=== PATIENT | male | born 1960 | race Caucasian/White ===

== ENCOUNTER 2019-05-30 00:13 | Inpatient (IN) | payer OTHER ==
[2019-05-30 01:22] VITALS: BMI 39.9
--- NOTE | 2019-05-30 03:06 | PDOC ---
History of Present Illness - General Chief Complaint: Nausea/Vomiting Stated Complaint: DIZZINESS,VOMITING Time Seen by Provider: 05/30/19 01:35 History Source: Patient, Family Exam Limitations: Other (development delay ) - History of Present Illness Initial Comments: 06/01/19 07:23 HPI: 58M PMH epilepsy (on keppra, lamictal, and started on valproate last week), chronic headaches, and HTN HLD presenting w/ 1 week of imbalance that has worsened in the past 2-3 days. Additionally c/o diplopia for 2-3 days, not currently symptomatic. Had a fall today which the patient attributes to the imbalance w/o head strike or LOC. Denies change in headache character/severity, numbness, tinging, weakness. Denies cp/sob, nausea, abd pain, diarrhea, bloody stool. Pt also had a fall a few weeks ago w/ fall on the right chest; has reproducible right chest wall pain. Neurologist is Dr. Nur. Past History - Past Medical History Allergies/Adverse Reactions: Allergies Allergy/AdvReac Type Severity Reaction Status Date / Time amoxicillin [From Augmentin] Allergy Verified 05/30/19 14:37 clavulanic acid Allergy Verified 05/30/19 14:37 [From Augmentin] Home Medications: Ambulatory Orders Carbamazepine Xr [Tegretol XR -] 300 mg PO BID 07/16/12 Lamotrigine [LaMICtal -] 400 mg PO BID 07/16/12 levETIRAcetam [Keppra -] 1,500 mg PO BID 07/16/12 Docusate Sodium [Colace -] 100 mg PO BID PRN #0 capsule 05/07/15 Oxycodone HCl/Acetaminophen [Percocet 5-325 mg Tablet] 1 tab PO Q6H PRN #20 tablet 05/07/15 Anemia: No Asthma: No Cancer: No Cardiac Disorders: No CVA: No COPD: No CHF: No Dementia: No Diabetes: No GI Disorders: No Disorders: No HTN: Yes Hypercholesterolemia: Yes Liver Disease: No Seizures: Yes Thyroid Disease: No - Surgical History Abdominal Surgery: No Appendectomy: No Cardiac Surgery: No Cholecystectomy: No Lung Surgery: No Neurologic Surgery: No Orthopedic Surgery: No - Psycho Social/Smoking Cessation Hx Smoking History: Never smoked Have you smoked in the past 12 months: No Hx Alcohol Use: No Drug/Substance Use Hx: No Substance Use Type: None Hx Substance Use Treatment: No Review of Systems - Review of Systems Able to Perform ROS?: Yes Comments:: 06/01/19 07:23 ROS: CONSTITUTIONAL: Denies F / C HEENT: Endorses imbalance, prior recent diplopia, chronic headaches. Denies changes to hearing. RESP: Denies SOB CARD: Endorses right rib pain. Denies chest pain GI: Endorses vomiting today x3 w/o N. Denies N / D, abdominal pain, bloody stool , inability to tolerate PO : Denies dysuria, frequency SKIN: Denies rashes NEURO: Denies numbness, tingling, weakness Is the patient limited Spanish proficient: No *Physical Exam - Vital Signs Last Vital Signs Temp Pulse Resp BP Pulse Ox 98.1 F 67 17 151/104 H 98 05/30/19 00:13 05/30/19 00:13 05/30/19 00:13 05/30/19 00:13 05/30/19 00:13 - Physical Exam Comments: 06/01/19 07:23 PE: GEN: NAD, AAOx3 HEENT: NC/AT. CN II-XII intact. EOMI, PERRLA but patient did not have smooth pursuit on tracking to the left, no nystagmus noted. No facial asymmetry. Moist mucous membranes. Supple neck w/ FROM w/o midline TTP. BACK: no deformities or stepoffs. No midline TTP. NEURO: 5/5 UE LE strength B/L. No finger to nose or heel to muñoz ataxia. Unsteady gait on ambulation. SYmmetric sensation. CV: S1/S2, RRR, no m/r/g LUNG: CTAB, no wheezes, crackles, rales, rhonchi. GI: soft, ndnt, +BS, no guarding, no rebound. No masses. Neg CVAT b/l. EXTREMITIES: No obvious deformities of all extremities. SKIN: warm, dry, normal turgor PSYCH: flat affect, parsity of words in speech. ED Treatment Course - LABORATORY CBC & Chemistry Diagram: 05/31/19 06:35 05/31/19 06:35 - RADIOLOGY Radiology Studies Ordered: Category Date Time Status HEAD CT WITHOUT CONTRAST [CT] Stat CT Scan 05/30/19 02:20 Ordered CHEST PA & LAT [RAD] Stat Radiology 05/30/19 02:43 Ordered Medical Decision Making - Medical Decision Making 05/30/19 02:59 MDM: 58M h/o epilepsy start recently on valproate c/o 1 week of worsening imbalance. DDx - concern for posterior CVA, ICH, drug adverse affect - CBC, CMP, Mg, drug levels - EKG, CXR - CT head 05/30/19 04:28 CT HEAD IOC IMPRESSION: No acute brain parenchymal abnormality. No hemorrhage, mass or acute territorial infarct. Age-related involutional changes. No skull fracture. Clear visualized paranasal sinuses. Visualized mastoid air cells clear F/U labs CTA Brain / Neck 05/30/19 07:00 Signed out to Day Team Discharge - Discharge Information Problems reviewed: Yes Clinical Impression/Diagnosis: Headache Qualifiers: Headache type: unspecified Headache chronicity pattern: unspecified pattern Intractability: not intractable Qualified Code(s): R51 - Headache Condition: Fair - Follow up/Referral - Patient Discharge Instructions - Post Discharge Activity
[2019-05-30 04:23] LABS: BASO % 0.1 % (0-2.0); HEMATOCRIT 46.3 % (35.4-49); HEMOGLOBIN 16.2 GM/dL (11.7-16.9); MCH 31.7 pg (25.7-33.7); MCHC 34.9 g/dl (32.0-35.9); MEAN CELL VOLUME 90.9 fl (80-96); MEAN PLT VOLUME 8.7 fl (7.5-11.1); MONO % 4.8 % (3.8-10.2); NEUT % 80.1 % (42.8-82.8); PLATELET COUNT 218 K/MM3 (134-434); RDW 13.8 % (11.9-15.9); WHITE BLOOD COUNT 10.2 K/mm3 (4.0-10.0)
[2019-05-30 04:41] LABS: ALBUMIN 4.2 g/dl (3.4-5.0); BILIRUBIN,TOTAL 0.5 mg/dL (0.2-1); BLOOD UREA NITROGEN 11.5 mg/dL (7-18); CALCIUM 8.8 mg/dL (8.5-10.1); CREATININE 0.9 mg/dL (0.55-1.3); MAGNESIUM 2.3 mg/dL (1.8-2.4); POTASSIUM 4.6 mmol/L (3.5-5.1); TOT PROT 6.7 g/dl (6.4-8.2)
--- NOTE | 2019-05-30 07:07 | PDOC ---
*Physical Exam - Vital Signs Last Vital Signs Temp Pulse Resp BP Pulse Ox 98.1 F 88 18 160/90 95 05/30/19 00:13 05/30/19 05:52 05/30/19 05:52 05/30/19 05:52 05/30/19 05:52 ED Treatment Course - LABORATORY CBC & Chemistry Diagram: 05/30/19 03:15 05/30/19 03:15 - ADDITIONAL ORDERS Additional order review: Laboratory Results 05/30/19 05/30/19 03:15 03:15 Sodium 140 Potassium 4.6 Chloride 105 Carbon Dioxide 28 Anion Gap 7 L BUN 11.5 Creatinine 0.9 Est GFR (CKD-EPI)AfAm 107.22 Est GFR (CKD-EPI)NonAf 92.51 Random Glucose 100 Calcium 8.8 Magnesium 2.3 Total Bilirubin 0.5 AST 25 ALT 39 Alkaline Phosphatase 158 H Creatine Kinase 132 Troponin I < 0.02 Total Protein 6.7 Albumin 4.2 05/30/19 03:15 RBC 5.10 MCV 90.9 MCHC 34.9 RDW 13.8 MPV 8.7 Neutrophils % 80.1 D Lymphocytes % 15.0 D Monocytes % 4.8 Eosinophils % 0.0 D Basophils % 0.1 Medical Decision Making - Medical Decision Making 05/30/19 07:04 Pt received on sign out from Dr. Mendoza. 58M hx of epilepsy, chronic STACY, mild developmental delay, HTN, HLD, on 3 AED ( keppra, lamotrigine, valproate started this week by Dr. uNr). Inbalance worsening, diplopia, fell today from imbalance, vomited x3. Unsteady gait. Non- smooth pursuit to left. Hemorrhage vs posterior stroke vs medication side effect vs occlusion of vertebral artery. CT shows no acute hemorrhage. -EKG -CTA -neuro consult 05/30/19 07:17 EKG shows NSR, 83 bpm, no ST elevation/depression, no axis deviation, QTc 423. 05/30/19 07:37 CTA head and neck negative. -admit for further work up. Discharge - Discharge Information Problems reviewed: Yes Clinical Impression/Diagnosis: Headache Qualifiers: Headache type: unspecified Condition: Fair - Admission Yes - Follow up/Referral - Patient Discharge Instructions - Post Discharge Activity
--- NOTE | 2019-05-30 07:39 | PDOC ---
Attending Attestation - Resident Resident Name: Eddie Mendoza - ED Attending Attestation I have performed the following: I have examined & evaluated the patient, The case was reviewed & discussed with the resident, I agree w/resident's findings & plan, Exceptions are as noted - HPI HPI: 05/30/19 07:35 58M pmh HLD, HTN, epilepsy, recent addition of valproic acid, chronic STACY here with 1 week of typical STACY but now a/w imbalance, dizziness, episodic diplopia. - Physicial Exam PE: 05/30/19 07:36 Agree with exam as documented by resident - Medical Decision Making 05/30/19 07:36 Headache but with some concerning features, eval for cva, central lesion f/u labs, ct- head, cta head/neck Will need admission for complete evaluation
[2019-05-30 10:30] LABS: INR 1.08 (0.83-1.09); PROTHROMBIN TIME (PATIENT) 12.8 SEC (9.7-13.0)
[2019-05-30 11:52] LABS: URINE APPEARANCE Clear; URINE BILIRUBIN Negative (NEGATIVE); URINE COLOR Yellow; URINE GLUCOSE (UA) Negative (NEGATIVE); URINE KETONE Negative (NEGATIVE); URINE LEUK ESTERASE Negative (NEGATIVE); URINE NITRITE Negative (NEGATIVE); URINE PROTEIN Negative (NEGATIVE); URINE UROBILINOGEN 0.2 mg/dL (0.2-1.0)
[2019-05-30] MEDS ORDERED: DOCUSATE SODIUM 100 MG CAPSULE (FP) PO PRN (13:36)
--- NOTE | 2019-05-30 14:23 | EKG ---
Test Reason : Blood Pressure : / mmHG Vent. Rate : 083 BPM Atrial Rate : 083 BPM P-R Int : 160 ms QRS Dur : 090 ms QT Int : 360 ms P-R-T Axes : 036 -19 062 degrees QTc Int : 423 ms NORMAL SINUS RHYTHM MINIMAL VOLTAGE CRITERIA FOR LVH, MAY BE NORMAL VARIANT WHEN COMPARED WITH ECG OF 30-APR-2015 12:46, NO SIGNIFICANT CHANGE WAS FOUND Confirmed by QUIN BALL MD ([id number]) on 05/30/2019 2:22:44 PM Referred By: Confirmed By:QUIN BALL MD
--- NOTE | 2019-05-30 14:33 | HP ---
Admitting History and Physical - Admission Chief Complaint: 58 y.o M was BI by his sister to the ER due to STACY, confusion, imbalance in his gait. Recently his anti-seizure medications were changed by Dr Nur-Depakote 250 mg BID added . 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 No: Alzheimer's, CVA, Migraine, TIA, Vertigo Cardiovascular: Yes: Hyperlipdemia. No: Deep Vein Thrombosis - Smoking History Smoking history: Never smoked Have you smoked in the past 12 months: No - Alcohol/Substance Use Hx Alcohol Use: No - Social History History of Recent Travel: No Home Medications - Allergies Allergies/Adverse Reactions: Allergies Allergy/AdvReac Type Severity Reaction Status Date / Time amoxicillin [From Augmentin] Allergy Verified 05/30/19 14:37 clavulanic acid Allergy Verified 05/30/19 14:37 [From Augmentin] - Home Medications Home Medications: Ambulatory Orders Carbamazepine Xr [Tegretol XR -] 300 mg PO BID 07/16/12 Lamotrigine [LaMICtal -] 400 mg PO BID 07/16/12 levETIRAcetam [Keppra -] 1,500 mg PO BID 07/16/12 Docusate Sodium [Colace -] 100 mg PO BID PRN #0 capsule 05/07/15 Oxycodone HCl/Acetaminophen [Percocet 5-325 mg Tablet] 1 tab PO Q6H PRN #20 tablet 05/07/15 Family Medical History Family Hx Cancer: Father Family Hx Cardiac Disorders: Sister Family Hx Congestive Heart Failure: Sister Family Hx Coronary Artery Disease: Father Family Hx Respiratory Disorders: Sister Family Hx Gastrointestinal Disorder: Father Review of Systems - Review of Systems Constitutional: denies: Chills, Diaphoresis, Fever Eyes: denies: Blind Spots, Blurred Vision HENT: denies: Difficult Swallowing, Ear Discharge, Hearing Loss, Mouth Swelling Neck: denies: Decreased ROM, Lumps, Pain on Movement Cardiovascular: denies: Chest Pain, Edema Respiratory: denies: Cough, Exercise Intolerance, Hemoptysis Gastrointestinal: reports: Vomiting (Occasionally) Genitourinary: denies: Burning Breasts: reports: No Symptoms Reported Musculoskeletal: denies: Back Pain, Crepitus, Decreased ROM Integumentary: reports: No Symptoms Neurological: reports: Headache, Incoordination, Seizure, Unsteady Gait Endocrine: reports: No Symptoms Hematology/Lymphatic: reports: No Symptoms Psychiatric: reports: No Symptoms Physical Examination Vital Signs: Vital Signs Temperature 98.1 F 05/30/19 00:13 Pulse Rate 88 05/30/19 05:52 Respiratory Rate 18 05/30/19 05:52 Blood Pressure 160/90 05/30/19 05:52 O2 Sat by Pulse Oximetry (%) 95 05/30/19 05:52 Constitutional: Yes: Calm Eyes: Yes: Conjunctiva Clear, EOM Intact HENT: Yes: Atraumatic, Normocephalic Neck: Yes: Supple, Trachea Midline Cardiovascular: Yes: Regular Rate and Rhythm, S1, S2. No: Bradycardia, Tachycardia Respiratory: Yes: Regular, CTA Bilaterally. No: Accessory Muscle Use, Bradypnea Gastrointestinal: Yes: Normal Bowel Sounds, Soft, Abdomen, Obese ...Rectal Exam: Yes: Deferred Renal/: No: Anuria, Bladder Distention Breast(s): Yes: WNL Musculoskeletal: Yes: Other (Right low ribs tender with ecchymotic areas) Extremities: No: Amputation, Calf Tenderness, Cold, Cyanosis Edema: No Integumentary: Yes: Bruising Neurological: Yes: Alert, Oriented, Unsteady Gait. No: Aphasia, Asterixis, Dysarthria, Seizure, Unresponsive, Weakness ...Motor Strength: WNL Psychiatric: Yes: Alert, Oriented. No: Agitated, Suicidal Ideation Labs: CBC, BMP 05/30/19 03:15 05/30/19 03:15 Laboratory Results - last 24 hr 05/30/19 05/30/19 05/30/19 03:15 03:15 03:15 WBC 10.2 H RBC 5.10 Hgb 16.2 Hct 46.3 MCV 90.9 MCH 31.7 MCHC 34.9 RDW 13.8 Plt Count 218 MPV 8.7 Absolute Neuts (auto) 8.1 H Neutrophils % 80.1 D Lymphocytes % 15.0 D Monocytes % 4.8 Eosinophils % 0.0 D Basophils % 0.1 Nucleated RBC % 0 PT with INR INR Sodium 140 Potassium 4.6 Chloride 105 Carbon Dioxide 28 Anion Gap 7 L BUN 11.5 Creatinine 0.9 Est GFR (CKD-EPI)AfAm 107.22 Est GFR (CKD-EPI)NonAf 92.51 Random Glucose 100 Calcium 8.8 Magnesium 2.3 Total Bilirubin 0.5 AST 25 ALT 39 Alkaline Phosphatase 158 H Creatine Kinase 132 Troponin I < 0.02 Total Protein 6.7 Albumin 4.2 Urine Color Urine Appearance Urine pH Ur Specific [place] Urine Protein Urine Glucose (UA) Urine Ketones Urine Blood Urine Nitrite Urine Bilirubin Urine Urobilinogen Ur Leukocyte Esterase Valproic Acid Blood Type Antibody Screen 05/30/19 05/30/19 05/30/19 10:00 10:00 10:00 WBC RBC Hgb Hct MCV MCH MCHC RDW Plt Count MPV Absolute Neuts (auto) Neutrophils % Lymphocytes % Monocytes % Eosinophils % Basophils % Nucleated RBC % PT with INR 12.80 INR 1.08 Sodium Potassium Chloride Carbon Dioxide Anion Gap BUN Creatinine Est GFR (CKD-EPI)AfAm Est GFR (CKD-EPI)NonAf Random Glucose Calcium Magnesium Total Bilirubin AST ALT Alkaline Phosphatase Creatine Kinase Troponin I Total Protein Albumin Urine Color Urine Appearance Urine pH Ur Specific [place] Urine Protein Urine Glucose (UA) Urine Ketones Urine Blood Urine Nitrite Urine Bilirubin Urine Urobilinogen Ur Leukocyte Esterase Valproic Acid 31.9 L Blood Type B POSITIVE Antibody Screen Negative 05/30/19 11:06 WBC RBC Hgb Hct MCV MCH MCHC RDW Plt Count MPV Absolute Neuts (auto) Neutrophils % Lymphocytes % Monocytes % Eosinophils % Basophils % Nucleated RBC % PT with INR INR Sodium Potassium Chloride Carbon Dioxide Anion Gap BUN Creatinine Est GFR (CKD-EPI)AfAm Est GFR (CKD-EPI)NonAf Random Glucose Calcium Magnesium Total Bilirubin AST ALT Alkaline Phosphatase Creatine Kinase Troponin I Total Protein Albumin Urine Color Yellow Urine Appearance Clear Urine pH 8.0 D Ur Specific [place] 1.010 Urine Protein Negative Urine Glucose (UA) Negative Urine Ketones Negative Urine Blood Negative Urine Nitrite Negative Urine Bilirubin Negative Urine Urobilinogen 0.2 Ur Leukocyte Esterase Negative Valproic Acid Blood Type Antibody Screen Imaging - Results Cat Scan: Report Reviewed Problem List - Problems (1) Gait abnormality Assessment/Plan: Recently changed anti-seizure meds. As discussed with Dr Nur will hold Lamotrigine today and restart 200 mg BID tomorrow. Restart Depakote 250 mg BID tomorrow Will check levels Keppra, lamotrigine, depakote Consult neurology-f/u. Problems reviewed: Yes Code(s): R26.9 - UNSPECIFIED ABNORMALITIES OF GAIT AND MOBILITY (2) Seizure disorder Assessment/Plan: Continue current meds as above When patient's gait improves will d/c home Problems reviewed: Yes Code(s): G40.909 - EPILEPSY, UNSP, NOT INTRACTABLE, WITHOUT STATUS EPILEPTICUS (3) Vomiting alone Assessment/Plan: The patient has mild elevation of Alk phos, will check liver US Code(s): R11.11 - VOMITING WITHOUT NAUSEA Qualifiers: Vomiting type: unspecified
--- NOTE | 2019-05-30 20:43 | CONSULT ---
Consult - text type - Consultation Consultation Note: NEUROLOGY CONSULT GREATLY APPRECIATED: Events reviewed and discussed ED and Dr. Schreiber. Pt examined with sister present. 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 Tegretol toxicity in the past with dizziness and unsteadiness. Fairly well controlled for about 5 years on lamotrigine 400 mg q12 and leveteracitam 1500 mg q12, until recent flurry of increased seizures. On 05/20/19, Depakote ER added at 250 mg and increased to 500 mg HS last week. At that time, lamotrigine level= 41 mcg% and leveteracitam level= 65 mcg% without signs of toxicity. However, over the last two weeks, the past developed dizziness and increasing unsteadiness leading to a fall one day [employer]. No seizures noted by sister. CT of head (reviewed): Unremarkable. No evidence of infection or electrolyte disturbance. Current VPA level= 31.6mcg% Lamotrigine held today with marked improvement in symptoms. PAULINA: No evidence of external head trauma. Cor reg. No bruit. NEURO: Mild static encephalopathy. Speech fluent without dysarthria. CNII-CNXII: Normal without nystagmus. Motor: Fine tremor on sustension and grasp. Normal strength, reflexes and ZAK's. Coordination: No FTN dystaxia. Sensory: Romberg - Gait: Normal base (sister notes improvement) but difficulty tandem. Impression: Mild B/L cerebral dysfunction Complex-Partial Seizures (CPS) Lamotrigine toxicity due to enzyme blockage by valproic acid Suggest: Hold lamotrigine tonight, then resume at 200 mg q12H Continue leveteracitam 1500 mg Q12 and Depakote ER 250 mg q12H. Neuro f/u as outpatient Thank you very much, Eddie Nur MD
[2019-05-30] MEDS: levETIRAcetam 500 MG TABLET (FP) PO SCH (21:16)
[2019-05-30] MEDS: ATORVASTATIN CA 40 MG TABLET (FP) PO SCH (21:16)
[2019-05-31 07:40] LABS: BASO % 0.3 % (0-2.0); EOS % 0.3 % (0-4.5); HEMATOCRIT 47.9 % (35.4-49); HEMOGLOBIN 16.1 GM/dL (11.7-16.9); LYMPH % 27.1 % (8-40); MCH 30.3 pg (25.7-33.7); MCHC 33.5 g/dl (32.0-35.9); MEAN CELL VOLUME 90.3 fl (80-96); MEAN PLT VOLUME 8.3 fl (7.5-11.1); MONO % 9.1 % (3.8-10.2); NEUT % 63.2 % (42.8-82.8); PLATELET COUNT 200 K/MM3 (134-434); RBC 5.31 M/mm3 (4.00-5.60); RDW 13.7 % (11.9-15.9); WHITE BLOOD COUNT 6.8 K/mm3 (4.0-10.0)
[2019-05-31 08:06] LABS: ALBUMIN 3.8 g/dl (3.4-5.0); BILIRUBIN,TOTAL 0.9 mg/dL (0.2-1); BLOOD UREA NITROGEN 12.2 mg/dL (7-18); CALCIUM 8.8 mg/dL (8.5-10.1); CREATININE 0.9 mg/dL (0.55-1.3); MAGNESIUM 2.2 mg/dL (1.8-2.4); PHOSPHOROUS 3.5 mg/dL (2.5-4.9); POTASSIUM 4.3 mmol/L (3.5-5.1); TOT PROT 6.1 g/dl (6.4-8.2)
[2019-05-31] MEDS ORDERED: PT OWN MED DRAWER 7, Y5N ONE ×3 (09:27→20:34)
[2019-05-31] MEDS: VALSARTAN 160 MG TABLET (UD) PO SCH (10:09)
[2019-05-31] MEDS: DIVALPROEX SODIUM 250 MG TABLET E.C. PO SCH ×2 (10:10→21:16)
[2019-05-31] MEDS: levETIRAcetam 500 MG TABLET (FP) PO SCH ×2 (10:10→21:16)
[2019-05-31] MEDS: lamoTRIgine 100 MG TABLET (FP) PO SCH ×2 (10:10→21:22)
--- NOTE | 2019-05-31 14:00 | PN ---
Physical Exam: SUBJECTIVE: Patient seen and examined patient is alert and awake no distress he is alert and has no seizure today and he ate food well OBJECTIVE: Vital Signs Period Temp Pulse Resp BP Sys/Shirley Pulse Ox Last 24 Hr 97.9 F-98.2 F 69-96 18-18 121-152/72-89 95-95 GENERAL: The patient is awake, alert, and fully oriented, in no acute distress. HEAD: Normal with no signs of trauma. EYES: PERRL, extraocular movements intact, sclera anicteric, conjunctiva clear. No ptosis. ENT: Ears normal, nares patent, oropharynx clear without exudates, moist mucous membranes. NECK: Trachea midline, full range of motion, supple. LUNGS: Breath sounds equal, clear to auscultation bilaterally, no wheezes, no crackles, no accessory muscle use. HEART: Regular rate and rhythm, S1, S2 without murmur, rub or gallop. ABDOMEN: Soft, nontender, nondistended, normoactive bowel sounds, no guarding, no rebound, no hepatosplenomegaly, no masses. EXTREMITIES: 2+ pulses, warm, well-perfused, no edema. NEUROLOGICAL: Cranial nerves II through XII grossly intact. Normal speech, gait not observed. PSYCH: Normal mood, normal affect. SKIN: Warm, dry, normal turgor, no rashes or lesions noted Laboratory Results - last 24 hr 05/31/19 05/31/19 05/31/19 06:35 06:35 06:35 WBC 6.8 RBC 5.31 Hgb 16.1 Hct 47.9 MCV 90.3 MCH 30.3 MCHC 33.5 RDW 13.7 Plt Count 200 MPV 8.3 Absolute Neuts (auto) 4.3 Neutrophils % 63.2 D Lymphocytes % 27.1 D Monocytes % 9.1 D Eosinophils % 0.3 D Basophils % 0.3 Nucleated RBC % 0 Sodium 140 Potassium 4.3 Chloride 106 Carbon Dioxide 29 Anion Gap 5 L BUN 12.2 Creatinine 0.9 Est GFR (CKD-EPI)AfAm 107.22 Est GFR (CKD-EPI)NonAf 92.51 Random Glucose 86 Hemoglobin A1c % 5.7 Calcium 8.8 Phosphorus 3.5 Magnesium 2.2 Total Bilirubin 0.9 AST 17 ALT 36 Alkaline Phosphatase 140 H Total Protein 6.1 L Albumin 3.8 Active Medications Generic Name Dose Route Start Last Admin Trade Name Jacksonq PRN Reason Stop Dose Admin Atorvastatin Calcium 40 mg 05/30/19 22:00 05/30/19 21:16 Lipitor - PO 40 mg HS NANCY Administration Divalproex Sodium 250 mg 05/31/19 08:00 05/31/19 10:10 Depakote - PO 250 mg BID NANCY Administration Docusate Sodium 100 mg 05/30/19 13:36 Colace - PO BID PRN CONSTIPATION Lamotrigine 200 mg 05/31/19 10:00 05/31/19 10:10 Lamictal - PO 200 mg BID NANCY Administration Levetiracetam 1,500 mg 05/30/19 22:00 05/31/19 10:10 Keppra - PO 1,500 mg BID NANCY Administration Valsartan 160 mg 05/31/19 10:00 05/31/19 10:09 Diovan - PO 160 mg DAILY NANCY Administration ASSESSMENT/PLAN: - Problems (1) Gait abnormality Assessment/Plan: Recently changed anti-seizure meds. As discussed with Dr Nur will hold Lamotrigine today and restart 200 mg BID tomorrow. Restart Depakote 250 mg BID tomorrow Will check levels Keppra, lamotrigine, depakote Consult neurology-f/u. (2) Seizure disorder Assessment/Plan: Continue current meds as above When patient's gait improves will d/c home (3) Vomiting alone Assessment/Plan: The patient has mild elevation of Alk phos, will check liver US Visit type - Emergency Visit Emergency Visit: Yes ED Registration Date: 05/30/19 Care time: The patient presented to the Emergency Department on the above date and was hospitalized for further evaluation of their emergent condition. - New Patient This patient is new to me today: Yes Date on this admission: 05/31/19 - Critical Care Critical Care patient: No - Discharge Referral Referred to [facility] No
[2019-05-31] MEDS: ATORVASTATIN CA 40 MG TABLET (FP) PO SCH (21:16)
[2019-06-01] MEDS ORDERED: PT OWN MED DRAWER 7, Y5N ONE (09:13)
[2019-06-01] MEDS: ACETAMINOPHEN 325 MG TABLET (FP) PO PRN (09:23)
[2019-06-01] MEDS: DIVALPROEX SODIUM 250 MG TABLET E.C. PO SCH ×2 (09:24→21:57)
[2019-06-01] MEDS: levETIRAcetam 500 MG TABLET (FP) PO SCH ×2 (09:25→21:57)
[2019-06-01] MEDS: VALSARTAN 160 MG TABLET (UD) PO SCH (09:25)
[2019-06-01] MEDS: lamoTRIgine 100 MG TABLET (FP) PO SCH ×2 (09:25→21:57)
--- NOTE | 2019-06-01 14:17 | PN ---
Physical Exam: SUBJECTIVE: Patient seen and examined Patient has no new symptoms except he has mild tenderness on his rt chest lower side no h/o trauma no fever or chills he is levels of seizure medications are normal, sonogram of abd shows he has mild dilatations of his cbd to 1 cm recommended to have mrcp being the fact he slight elevation on alkpo4 OBJECTIVE: Vital Signs Period Temp Pulse Resp BP Sys/Shirley Pulse Ox Last 24 Hr 97.7 F-98.6 F 69-96 18-20 101-115/50-79 96 GENERAL: The patient is awake, alert, and fully oriented, in no acute distress. HEAD: Normal with no signs of trauma. EYES: PERRL, extraocular movements intact, sclera anicteric, conjunctiva clear. No ptosis. ENT: Ears normal, nares patent, oropharynx clear without exudates, moist mucous membranes. NECK: Trachea midline, full range of motion, supple. LUNGS: Breath sounds equal, clear to auscultation bilaterally, no wheezes, no crackles, no accessory muscle use. he is tender on his rt lower chest but no rebound./ HEART: Regular rate and rhythm, S1, S2 without murmur, rub or gallop. ABDOMEN: Soft, nontender, nondistended, normoactive bowel sounds, no guarding, no rebound, no hepatosplenomegaly, no masses. EXTREMITIES: 2+ pulses, warm, well-perfused, no edema. NEUROLOGICAL: Cranial nerves II through XII grossly intact. Normal speech, gait not observed. Laboratory Results - last 24 hr 05/30/19 05/30/19 10:00 10:00 Lamotrigine 18.6 Levetiracetam 15.7 Active Medications Generic Name Dose Route Start Last Admin Trade Name Freq PRN Reason Stop Dose Admin Acetaminophen 650 mg 06/01/19 08:20 06/01/19 09:23 Tylenol - PO 650 mg Q6H PRN Administration PAIN 1-3 Atorvastatin Calcium 40 mg 05/30/19 22:00 05/31/19 21:16 Lipitor - PO 40 mg HS NANCY Administration Divalproex Sodium 250 mg 05/31/19 08:00 06/01/19 09:24 Depakote - PO 250 mg BID NANCY Administration Docusate Sodium 100 mg 05/30/19 13:36 Colace - PO BID PRN CONSTIPATION Lamotrigine 200 mg 05/31/19 10:00 06/01/19 09:25 Lamictal - PO 200 mg BID NANCY Administration Levetiracetam 1,500 mg 05/30/19 22:00 06/01/19 09:25 Keppra - PO 1,500 mg BID NANCY Administration Valsartan 160 mg 05/31/19 10:00 06/01/19 09:25 Diovan - PO 160 mg DAILY NANCY Administration ASSESSMENT/PLAN: (1) Gait abnormality Assessment/Plan: Recently changed anti-seizure meds. on lamotrigine level is theraputic Depakote 250 mg BID Will check levels Keppra, lamotrigine, depakote and they are theraputic neurology-f/u. (2) Seizure disorder Assessment/Plan: Continue current meds as above When patient's gait improves will d/c home (3) Vomiting alone Assessment/Plan: The patient has mild elevation of Alk phos, with mild dilated CBD and will order mrcp r/o obstruction. Visit type - Emergency Visit Emergency Visit: Yes ED Registration Date: 05/30/19 Care time: The patient presented to the Emergency Department on the above date and was hospitalized for further evaluation of their emergent condition. - New Patient This patient is new to me today: No - Critical Care Critical Care patient: No - Discharge Referral Referred to [facility] Med [facility] No
[2019-06-01] MEDS: ATORVASTATIN CA 40 MG TABLET (FP) PO SCH (21:57)
[2019-06-02] MEDS: ACETAMINOPHEN 325 MG TABLET (FP) PO PRN ×2 (06:04→22:00)
--- NOTE | 2019-06-02 08:31 | PN ---
Progress Note, Physician Chief Complaint: Gait improved. Dr Nur consult noted. 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) Hyperlipidemia, unspecified (G40.309) Generalized idiopathic epilepsy and epileptic syndromes, not intractable, without status epilepticus (R00.0) Tachycardia, ST (I10) Essential (primary) hypertension - Current Medication List Current Medications: Active Medications Acetaminophen (Tylenol -) 650 mg PO Q6H PRN PRN Reason: PAIN 1-3 Last Admin: 06/02/19 06:04 Dose: 650 mg Atorvastatin Calcium (Lipitor -) 40 mg PO HS [facility] Last Admin: 06/01/19 21:57 Dose: 40 mg Divalproex Sodium (Depakote -) 250 mg PO BID [facility] Last Admin: 06/01/19 21:57 Dose: 250 mg Docusate Sodium (Colace -) 100 mg PO BID PRN PRN Reason: CONSTIPATION Lamotrigine (Lamictal -) 200 mg PO BID [facility] Last Admin: 06/01/19 21:57 Dose: 200 mg Levetiracetam (Keppra -) 1,500 mg PO BID [facility] Last Admin: 06/01/19 21:57 Dose: 1,500 mg Valsartan (Diovan -) 160 mg PO DAILY [facility] Last Admin: 06/01/19 09:25 Dose: 160 mg - Objective Vital Signs: Vital Signs Temperature 98.3 F 06/02/19 06:00 Pulse Rate 73 06/02/19 06:00 Respiratory Rate 18 06/02/19 06:00 Blood Pressure 135/81 06/02/19 06:00 O2 Sat by Pulse Oximetry (%) 96 06/01/19 20:49 Constitutional: Yes: Calm Eyes: Yes: Conjunctiva Clear, EOM Intact HENT: Yes: Atraumatic, Normocephalic Neck: Yes: Supple, Trachea Midline Cardiovascular: Yes: Regular Rate and Rhythm Respiratory: Yes: Regular, CTA Bilaterally Gastrointestinal: Yes: Normal Bowel Sounds, Soft, Abdomen, Obese ...Rectal Exam: Yes: Deferred Genitourinary: No: Anuria, Bladder Distention Breast(s): Yes: WNL Musculoskeletal: Yes: Other (Pain right low ribs on palpation) Extremities: Yes: WNL Edema: No Peripheral Pulses WNL: Yes Integumentary: Yes: WNL Neurological: Yes: Alert, Oriented, Other (Ambulates well) ...Motor Strength: WNL Psychiatric: Yes: WNL Labs: CBC, BMP 05/31/19 06:35 05/31/19 06:35 INR, PTT INR 1.08 (0.83-1.09) 05/30/19 10:00 Problem List - Problems (1) Gait abnormality Assessment/Plan: Recently changed anti-seizure meds. As discussed with Dr Nur will hold Lamotrigine today and restart 200 mg BID tomorrow. Restarted Depakote 250 mg BID Therapeutic levels Keppra, lamotrigine, depakote Consult neurology-f/u. Code(s): R26.9 - UNSPECIFIED ABNORMALITIES OF GAIT AND MOBILITY (2) Seizure disorder Assessment/Plan: Continue current meds as above When patient's gait improves will d/c home Code(s): G40.909 - EPILEPSY, UNSP, NOT INTRACTABLE, WITHOUT STATUS EPILEPTICUS (3) Vomiting alone Assessment/Plan: The patient has mild elevation of Alk phos, dillated CBD Will check MRCP for distal CBD obstruction. Code(s): R11.11 - VOMITING WITHOUT NAUSEA Qualifiers: Vomiting type: unspecified
[2019-06-02] MEDS ORDERED: PT OWN MED DRAWER 7, Y5N ONE ×2 (09:21→21:48)
[2019-06-02] MEDS: VALSARTAN 160 MG TABLET (UD) PO SCH (09:29)
[2019-06-02] MEDS: lamoTRIgine 100 MG TABLET (FP) PO SCH ×2 (09:29→22:00)
[2019-06-02] MEDS: levETIRAcetam 500 MG TABLET (FP) PO SCH ×2 (09:29→22:00)
[2019-06-02] MEDS: DIVALPROEX SODIUM 250 MG TABLET E.C. PO SCH ×2 (09:30→22:00)
[2019-06-02] MEDS: ATORVASTATIN CA 40 MG TABLET (FP) PO SCH (22:00)
[2019-06-03 09:21] VITALS: BP 106/82; PULSE 82; TEMP 98
[2019-06-03] MEDS: levETIRAcetam 500 MG TABLET (FP) PO SCH (09:53)
[2019-06-03] MEDS: ACETAMINOPHEN 325 MG TABLET (FP) PO PRN (09:53)
[2019-06-03] MEDS: VALSARTAN 160 MG TABLET (UD) PO SCH (09:53)
[2019-06-03] MEDS: DIVALPROEX SODIUM 250 MG TABLET E.C. PO SCH (09:54)
[2019-06-03] MEDS: lamoTRIgine 100 MG TABLET (FP) PO SCH (09:54)
--- NOTE | 2019-06-03 12:30 | PN ---
Progress Note (short form) - Note Progress Note: Feels well, MRCP-no CBD obstruction, simple renal cysts. Vital Signs (72 hours) 05/31/19 05/31/19 05/31/19 14:00 20:24 22:00 Temperature 97.5 F L 98 F Pulse Rate 85 96 H Respiratory 20 20 20 Rate Blood Pressure 115/71 112/69 O2 Sat by Pulse 96 Oximetry (%) 06/01/19 06/01/19 06/01/19 01:00 EST 05:19 09:00 Temperature 97.7 F 98 F 98.6 F Pulse Rate 74 69 88 Respiratory 20 20 18 Rate Blood Pressure 110/50 L 101/57 L 115/79 O2 Sat by Pulse 98 Oximetry (%) 06/01/19 06/01/19 06/01/19 14:00 18:00 20:49 Temperature 98 F 97.7 F Pulse Rate 89 92 H Respiratory 20 20 Rate Blood Pressure 101/55 L 117/78 O2 Sat by Pulse 96 Oximetry (%) 06/01/19 06/02/19 06/02/19 22:00 01:50 06:00 Temperature 98.2 F 97.8 F 98.3 F Pulse Rate 76 73 73 Respiratory 18 20 18 Rate Blood Pressure 142/83 112/78 135/81 O2 Sat by Pulse Oximetry (%) 06/02/19 06/02/19 06/02/19 09:00 14:15 21:00 Temperature 98 F 98.2 F Pulse Rate 80 86 Respiratory 18 20 Rate Blood Pressure 119/79 132/77 O2 Sat by Pulse 98 95 Oximetry (%) 06/02/19 06/03/19 06/03/19 22:00 03:00 06:00 Temperature 98.5 F 97.7 F 97.6 F Pulse Rate 104 H 79 81 Respiratory 18 20 18 Rate Blood Pressure 120/79 109/66 117/81 O2 Sat by Pulse Oximetry (%) 06/03/19 09:00 Temperature 98 F Pulse Rate 82 Respiratory 18 Rate Blood Pressure 106/82 O2 Sat by Pulse 95 Oximetry (%) Lungs clear Heart S1S2 regular Abdomen soft, NT Right ribs tenderness. Current Active Problems Problem Status Onset Gait abnormality Acute Headache Epilepsy Acute Plan D/C home F/u at the office next week Problem List - Problems (1) Gait abnormality Code(s): R26.9 - UNSPECIFIED ABNORMALITIES OF GAIT AND MOBILITY (2) Seizure disorder Code(s): G40.909 - EPILEPSY, UNSP, NOT INTRACTABLE, WITHOUT STATUS EPILEPTICUS (3) Vomiting alone Code(s): R11.11 - VOMITING WITHOUT NAUSEA Qualifiers: Vomiting type: unspecified
--- NOTE | 2019-06-03 12:36 | DS ---
Physical Examination Vital Signs: Vital Signs Temperature 98 F 06/03/19 09:00 Pulse Rate 82 06/03/19 09:00 Respiratory Rate 18 06/03/19 09:00 Blood Pressure 106/82 06/03/19 09:00 O2 Sat by Pulse Oximetry (%) 95 06/03/19 09:00 Constitutional: Yes: No Distress, Calm Eyes: Yes: Conjunctiva Clear, EOM Intact HENT: Yes: Atraumatic, Normocephalic Neck: Yes: Supple, Trachea Midline Cardiovascular: Yes: Regular Rate and Rhythm Respiratory: Yes: Regular, CTA Bilaterally Gastrointestinal: Yes: Normal Bowel Sounds, Soft, Abdomen, Obese ...Rectal Exam: Yes: Deferred Breast(s): Yes: WNL Musculoskeletal: Yes: WNL, Muscle Weakness Edema: No Peripheral Pulses WNL: Yes Integumentary: Yes: WNL Neurological: Yes: Alert, Oriented. No: Aphasia ...Motor Strength: WNL Psychiatric: Yes: WNL Labs: CBC, BMP 05/31/19 06:35 05/31/19 06:35 Discharge Summary Problems reviewed: Yes Reason For Visit: DIZZINESS Current Active Problems Gait abnormality (Acute) Headache (Acute) Condition: Fair - Instructions Referrals: Eris Schreiber MD [Primary Care Provider] - - Home Medications Comprehensive Discharge Medication List: Ambulatory Orders Carbamazepine Xr [Tegretol XR -] 300 mg PO BID 07/16/12 Lamotrigine [LaMICtal -] 400 mg PO BID 07/16/12 levETIRAcetam [Keppra -] 1,500 mg PO BID 07/16/12 Docusate Sodium [Colace -] 100 mg PO BID PRN #0 capsule 05/07/15 Oxycodone HCl/Acetaminophen [Percocet 5-325 mg Tablet] 1 tab PO Q6H PRN #20 tablet 05/07/15
== END 2019-06-03 13:36 | disposition home or self-care (01) | DRG 92 ==
LOC: JER 00:13 → JERBED 08:38 → J4W 17:12
PROVIDERS: ADMIT Internal Medicine; ATTEND Internal Medicine
DX: R26.9 Unspecified abnormalities of gait and mobility (principal); G93.49 Other encephalopathy; R42 Dizziness and giddiness; I10 Essential (primary) hypertension; E78.5 Hyperlipidemia, unspecified; F88 Other disorders of psychological development; G40.909 Epilepsy, unspecified, not intractable, without status epilepticus; R11.11 Vomiting without nausea; G44.40 Drug-induced headache, not elsewhere classified, not intractable; T42.6X5A Adverse effect of other antiepileptic and sedative-hypnotic drugs, initial encounter; H53.2 Diplopia; R26.81 Unsteadiness on feet; E66.9 Obesity, unspecified; Z68.33 Body mass index [BMI] 33.0-33.9, adult
CPT/HCPCS: 36415; 70450-TC; 70496-TC; 70498-TC; 71045-TC-FY; 74181-TC; 76705-TC; 80053; 80164; 80175; 80177; 81003; 82550; 83036; 83735; 84100; 84484; 85025; 85610; 86850; 86900; 86901; 93005; 93010; 97116-GP; 97161-GP; 99283-25